=== PATIENT | male | born 1935 | race Caucasian/White ===

== ENCOUNTER 2018-02-23 16:13 | Outpatient (CLI) ==
[2013-03-08 15:15] VITALS: BMI 26.4
--- NOTE | 2018-02-24 06:03 | DI ---
EXAM: Two-view chest HISTORY: Injury COMPARISON: Two-view chest 03/27/2015 FINDINGS: The cardiomediastinal silhouette is stable. The lungs are hyperinflated.. There is minim al atelectasis or scarring at the left lung base. There is ossification of the anterior longitudinal ligament. IMPRESSION: Bilateral hyperinflation. Minimal atelectasis versus scarring left lung base.
--- NOTE | 2018-02-24 06:05 | DI ---
EXAM: Left rib series four views HISTORY: Trauma COMPARISON: None. FINDINGS: Evaluation of the left rib cage reveals no evidence of fracture or bony abnormality. IMPRESSION: No acute findings
== END 2018-02-23 16:14 | disposition home or self-care (01) ==
LOC: RAD 16:13
PROVIDERS: ATTEND Internal Medicine
DX: S29.9XXA Unspecified injury of thorax, initial encounter (principal)